=== PATIENT | male | born 1955 | race Caucasian/White ===

== ENCOUNTER 2016-11-19 17:24 | Emergency (ER) | payer OTHER, SELFPAY ==
--- NOTE | 2016-11-22 16:41 | ER ---
ADMIT: 11/19/2016 RM/LOC: ER [facility] MR#: [id number] [address] [address] [address] MAS[address] [place] [address] Emergency Room Report SEX: M AGE: 61 : 1955 DATE: 11/19/2016 ADDENDUM: A 61-year-old white male with COPD, coming in with more shortness of breath. We gave him DuoNeb, 20 of Decadron IM, and put him on prednisone 20 b.i.d. for 4 days. He is better with the treatment. He is to use his inhaler fairly aggressively. He also has nebulizers. At least probably every 3-4 hours until this starts to get better. He should follow up as needed. CONDITION ON DISCHARGE: Improved. Adryan Zuniga MD/ crystal JOB #: [id number] CC: Adryan Zuniga MD, Attending Physician Maura Meyer MD, Family Physician
== END 2016-11-19 18:00 | disposition home or self-care (01) ==
LOC: ER 17:24
DX: J44.1 Chronic obstructive pulmonary disease with (acute) exacerbation (principal); E11.9 Type 2 diabetes mellitus without complications; I10 Essential (primary) hypertension; F17.210 Nicotine dependence, cigarettes, uncomplicated; Z86.73 Personal history of transient ischemic attack (TIA), and cerebral infarction without residual deficits; Z79.82 Long term (current) use of aspirin; Z79.01 Long term (current) use of anticoagulants; Z79.899 Other long term (current) drug therapy

== ENCOUNTER 2016-11-20 16:58 | Emergency (ER) | payer OTHER, SELFPAY ==
--- NOTE | 2016-12-27 18:52 | ER ---
ADMIT: 11/20/2016 RM/LOC: ER [facility] MR#: [id number] [address] [address] [address]DO MASON [address] [place] [address] Emergency Room Report SEX: M AGE: 61 : 1955 DATE: 11/20/2016 ADDENDUM: HISTORY OF PRESENT ILLNESS: This patient comes into the ER because he has been short of breath for the last 3 days, he was seen in the ER yesterday. He has been coughing up green phlegm. He also has had a runny nose and a sore throat. PHYSICAL EXAMINATION: He does have some wheezes. He does have stable vital signs. His O2 saturation was on room air. Chest x-ray was negative for pneumonia. I did review his chart when he was here previously. He was given Zithromax 500 mg IM. DIAGNOSES: 1. Bronchitis. 2. Chronic obstructive pulmonary disease. He should continue with his albuterol and Zithromax. Follow up with Dr. Meyer as needed. Please see my T-sheet. LORENZO Rushing / Jalil Bernabe MD / crystal JOB #: [id number] CC: Jalil Bernabe MD, Attending Physician Maura Meyer MD, Family Physician
== END 2016-11-20 18:06 | disposition home or self-care (01) ==
LOC: ER 16:58
DX: J44.9 Chronic obstructive pulmonary disease, unspecified (principal); I10 Essential (primary) hypertension; Z87.891 Personal history of nicotine dependence; Z88.0 Allergy status to penicillin; Z88.2 Allergy status to sulfonamides; Z79.01 Long term (current) use of anticoagulants; Z79.82 Long term (current) use of aspirin; Z79.899 Other long term (current) drug therapy

== ENCOUNTER 2016-11-22 14:41 | Emergency (ER) | payer OTHER, SELFPAY ==
--- NOTE | 2016-11-27 09:52 | ER ---
ADMIT: 11/22/2016 RM/LOC: ER [facility] MR#: [id number] [address] [address] ALDO MASON [address] [place] [address] Emergency Room Report SEX: M AGE: 61 : 1955 DATE: 11/22/2016 HISTORY OF PRESENT ILLNESS: The patient is a 61-year-old, who complaints of productive cough, shortness of breath. He has had a history of fem bypass, T and A, and appendectomy, carpal tunnel, heart murmur, asthma, COPD, hypertension, diabetes type 2, cardiac disease, and hyperlipidemia. He was in the ER on the and and 16 on the . ALLERGIES: HE IS ALLERGIC TO PENICILLIN AND SULFA. SOCIAL HISTORY: He quit smoking 15 years ago. EMERGENCY ROOM COURSE: Dr. Zuniga saw him, send him home with prescription for Z-Kenn as well as prednisone. He does not seem to be short of breath more than normal but he is mildly anxious. PHYSICAL EXAMINATION: VITAL SIGNS: 154/85, heart rate is 82, respirations 20, temp is 97.2, O2 sats 96%. GENERAL: Decreased air movement noted through his lungs. He is not piercing his lungs either. SKIN: Good color and turgor. EXTREMITIES: Nontender. NEUROLOGIC, : Oriented x4. Mood and affect appropriate. LABORATORY DATA: His x-ray shows COPD. Dr. Bernabe reviewed it. ABGs; pH 7.4, SO2 of 91%, HCOO3 of 23.7. CBC within normal limits. Chemistry; glucose of 142. TSH is 2.35 with troponin of 0.045. He was given a shot of Decadron. He received DuoNeb that was somewhat helpful. I did write script for DuoNeb and gave him a work note. CLINICAL IMPRESSION: Chronic obstructive pulmonary disease exacerbation. The patient discharged. LORENZO Machuca / Adryan Zuniga MD / crystal JOB #: [id number] CC: Adryan Zuniga MD, Attending Physician Maura Meyer MD, Family Physician
== END 2016-11-22 18:01 | disposition home or self-care (01) ==
LOC: ER 14:41
DX: J44.1 Chronic obstructive pulmonary disease with (acute) exacerbation (principal); E11.9 Type 2 diabetes mellitus without complications; J45.909 Unspecified asthma, uncomplicated; E78.5 Hyperlipidemia, unspecified; I10 Essential (primary) hypertension; E78.00 Pure hypercholesterolemia, unspecified; Z90.49 Acquired absence of other specified parts of digestive tract; Z88.0 Allergy status to penicillin; Z88.2 Allergy status to sulfonamides; Z79.52 Long term (current) use of systemic steroids

== ENCOUNTER 2016-11-23 21:31 | Emergency (ER) | payer OTHER, SELFPAY ==
--- NOTE | 2016-11-24 19:29 | ER ---
ADMIT: 11/23/2016 RM/LOC: ER [facility] MR#: [id number] [address] [address] [address] MASON [address] [place] [address] Emergency Room Report SEX: M AGE: 61 : 1955 DATE: 11/23/2016 The patient is a 61-year-old male with a past medical history of hypertension, coronary artery disease, diabetes, asthma, and COPD, who is on home nebulizer, came to the ER with chief complaint of increased shortness of breath and increase clear white sputum for the last 7 days. The patient has been to the ER three times during the last week and has received nebulizer DuoNeb and also corticosteroid and also received a Z-Kenn, which he used the last dosage. The patient denies any fever. The patient denies also any chest pain. The patient states he uses nebulizer at home, but it did not work well for him. In the ER, the patient was afebrile, in mild respiratory distress, with audible wheezing. There are no retractions. There is no cyanosis. Head and neck were noncontributory, trachea is midline. Bilateral wheezing without any crackles. Normal S1 and S2. Soft abdomen. The rest of the physical exam is noncontributory. With suspicion of COPD exacerbation, the patient received DuoNeb nebulizer in the ER. The patient is already on corticosteroid. The patient was rechecked, and wheezing was substantially resolved. The patient states he feels better. The patient was discharged to home with Levaquin for 5 days and follow up with the primary care doctor as needed. The patient agreed with the plan. He understood it and was discharged home. Neto Batista MD/ crystal JOB #: [id number] CC: Neto Batista MD, Attending Physician Maura Meyer MD, Family Physician
== END 2016-11-23 22:50 | disposition home or self-care (01) ==
LOC: ER 21:31
DX: J44.1 Chronic obstructive pulmonary disease with (acute) exacerbation (principal); I10 Essential (primary) hypertension; E11.9 Type 2 diabetes mellitus without complications; E78.00 Pure hypercholesterolemia, unspecified; J45.909 Unspecified asthma, uncomplicated; Z88.0 Allergy status to penicillin; Z88.2 Allergy status to sulfonamides

== ENCOUNTER 2016-11-27 17:13 | Emergency (ER) | payer OTHER, SELFPAY ==
--- NOTE | 2016-12-08 00:45 | ER ---
ADMIT: 11/27/2016 RM/LOC: ER [facility] MR#: [id number] [facility] [address] [place] [id number] ALDO MASON [address] [place] [address] Emergency Room Report SEX: M AGE: 61 : 1955 DATE: 11/27/2016 HISTORY OF PRESENT ILLNESS: This patient, Mr. Mason, had been in the emergency room five times since September, recently a week ago in the ER. He is a patient of Dr. Lama. He comes in with shortness of breath. He is not looking very anxious at all. PHYSICAL EXAMINATION: VITAL SIGNS: Blood pressure is 160/70 with a MAP of 94, pulse is 101, respirations 23, temp is 94.5. PAST MEDICAL HISTORY: He has a history of hypertension, COPD, diabetes, GERD, femoral bypass, and asthma. MEDICATIONS: See T-sheet. PHYSICAL EXAMINATION: GENERAL: Alert and oriented male. ENT: Normal inspection. NECK: Supple. RESPIRATIONS: Decreased air movement bilaterally. He does have wheezes in the upper lungs. CVS: Tachycardic. ABDOMEN: Nontender. SKIN: Good color and turgor. EXTREMITIES: Well perfused. No edema noted. Last admission was on 11/22. He was advised to follow up with conference service coordinator. He had a workup including troponin, TSH, CBC, chemistry, and he was given Decadron for his COPD exacerbation. He was encouraged to follow up with his primary provider as it is necessary that he gets a clear follow up of his symptoms. CLINICAL IMPRESSION: Chronic obstructive pulmonary disease. The patient was ambulated, but Respiratory Therapy found to need O2 saturation on exertion. See respiratory therapy consultation sheet for need of oxygen. He was advised to follow up with his primary provider and advised to get the oxygen through their clinic. He understands. He states that the worst thing that happens to him is the fact that he has mucus loose in his lungs and that upsets him, that is why he is back in here again. CLINICAL IMPRESSION: Chronic obstructive pulmonary disease, chronic. LORENZO Machuca / Noman Cr MD / modl JOB #: [id number] CC: Noman Cr MD, Attending Physician Susan Lama MD, Family Physician
== END 2016-11-27 19:30 | disposition home or self-care (01) ==
LOC: ER 17:13
DX: J44.9 Chronic obstructive pulmonary disease, unspecified (principal); I10 Essential (primary) hypertension; Z87.891 Personal history of nicotine dependence; Z88.0 Allergy status to penicillin; Z88.2 Allergy status to sulfonamides; Z79.01 Long term (current) use of anticoagulants; Z79.899 Other long term (current) drug therapy

== ENCOUNTER 2016-12-13 15:54 | Emergency (ER) | payer SELFPAY ==
--- NOTE | 2016-12-20 13:52 | ER ---
ADMIT: 12/13/2016 RM/LOC: ER [facility] MR#: [id number] 2620 [facility] [address] [place] [phone] [address] [place] [address] Emergency Room Report SEX: M AGE: 61 : 1955 DATE: 12/13/2016 ADDENDUM: CHIEF COMPLAINT: Sinus drainage. HISTORY OF PRESENT ILLNESS: This is a 61-year-old male who has COPD. He has actually been seen in our ER a few times within the last month. He was placed on prednisone and Levaquin. His symptoms improved a little bit, but he just says he still feels like he has a lot of mucus and drainage. He has been on Claritin daily for 10 years. I told him lets try switching that up and having him hold his Claritin and start Zyrtec to see if that helps a little bit more. He is in no acute distress. His lungs are clear. His sats are 99% on room air. At this time, he is not in any COPD exacerbation. He does not seem to have bronchitis or pneumonia. I told him that it just seems more allergies. CLINICAL IMPRESSION: 1. Chronic obstructive pulmonary disease. 2. Seasonal allergies. DISPOSITION: Again, I am going to have him start Zyrtec and push fluids and follow up if he worsens. LORENZO Magaña / Noman Cr MD / crystal JOB #: [id number] CC: Noman Cr MD, Attending Physician Maura Meyer MD, Family Physician
== END 2016-12-13 17:10 | disposition home or self-care (01) ==
LOC: ER 15:54
DX: J44.9 Chronic obstructive pulmonary disease, unspecified (principal); J30.2 Other seasonal allergic rhinitis; Z88.0 Allergy status to penicillin; Z79.01 Long term (current) use of anticoagulants; Z79.899 Other long term (current) drug therapy

== ENCOUNTER → 2016-12-18 | Outpatient (CLI) | payer OTHER | END | disposition home or self-care (01) | LOC: PTH.S 10:27 | DX: J44.9 Chronic obstructive pulmonary disease, unspecified (principal); E11.9 Type 2 diabetes mellitus without complications; I10 Essential (primary) hypertension ==

== ENCOUNTER → 2017-02-21 | Outpatient (CLI) | payer OTHER | END | disposition home or self-care (01) | LOC: PTH.S 14:17 | DX: E11.9 Type 2 diabetes mellitus without complications (principal) ==